=== PATIENT | female | born 1985 | race Caucasian/White ===

== ENCOUNTER 2020-08-06 15:55 | Outpatient (CLI) | payer OTHER, SELFPAY ==
--- NOTE | ~2020-08-06 | XR_ITS ---
EXAMINATION: XR shoulder RT min 2V DATE: 08/06/2020 16:15 INDICATION: Right shoulder pain. TECHNIQUE: 4 views of right shoulder were obtained. COMPARISON: None. FINDINGS: Bone alignment is normal. No fracture. Joint spaces are well maintained. IMPRESSION: 1. Normal right shoulder. Reviewed, dictated and finalized at location A. COLLECTOR TREATER IMPRESSION: 1. Normal right shoulder.
== END 2020-08-06 15:56 | disposition home or self-care (01) ==
LOC: CHSIMG 15:57
PROVIDERS: PCP Family Medicine; Visit Provider Family Medicine
DX: M25.511 Pain in right shoulder (principal)
CPT/HCPCS: 73030

== ENCOUNTER 2020-09-15 11:25 | Outpatient (CLI) | payer OTHER, SELFPAY ==
[2020-09-19 21:23] LABS: Vitamin D 25 Hydroxy 48 ng/mL (30-100)
== END 2020-09-15 11:26 | disposition home or self-care (01) ==
LOC: CHSLAB 11:27
PROVIDERS: PCP Family Medicine; Visit Provider Nurse Practitioner
DX: Z13.21 Encounter for screening for nutritional disorder (principal)
CPT/HCPCS: 36415; 82306

== ENCOUNTER 2021-09-15 13:27 | Outpatient (CLI) | payer OTHER, SELFPAY ==
--- NOTE | ~2021-09-15 | XR_ITS ---
EXAMINATION: XR lumbar spine 2-3V DATE: 09/15/2021 13:53 INDICATION: Low back pain. TECHNIQUE: 3 views of lumbar spine were obtained. COMPARISON: Lumbar spine radiographs 06/12/2017 FINDINGS: Bone alignment is normal. Vertebral body heights are normal. There are changes of anterior and posterior fusion procedures from L4 to S1 with interbody devices and pedicle screws. Intervertebr al disc heights are normal. There are endplate osteophytes at most levels. The facet joints are unrem arkable and upper lumbar spine.. IMPRESSION: 1. Anterior and posterior fusion procedures from L4 to S1. Reviewed, dictated and finalized at location B. EW APPRAISER
== END 2021-09-15 13:28 | disposition home or self-care (01) ==
LOC: CHSIMG 13:29
PROVIDERS: PCP Family Medicine; Visit Provider Physician Assistant
DX: M54.50 Low back pain, unspecified (principal)
CPT/HCPCS: 72100

== ENCOUNTER 2022-10-05 07:30 | Outpatient (CLI) | payer BC, SELFPAY ==
[2022-10-05 07:50] LABS: Basophils Absolute Auto 0.04 K/mm3 (0.00-0.10); Basophils Percent Auto 0.5 % (0.0-1.0); Eosinophils Percent Auto 1.2 % (1.0-6.0); Hematocrit 42.7 % (35.0-49.0); Hemoglobin 13.9 g/dL (12.0-15.0); Immature Granulocyte Absolute 0.02 K/mm3 (0.00-0.00); Immature Granulocyte Percent A 0.2 % (0.0-0.0); Lymphocytes Absolute Auto 1.48 K/mm3 (1.10-4.50); Mean Corpuscular HGB Conc 32.6 g/dL (32.0-36.0); Mean Corpuscular Hemoglobin 31.4 pg (27.0-31.0); Mean Corpuscular Volume 96.6 fL (78.0-102.0); Mean Platelet Volume 9.3 fl (9.2-11.8); Monocytes Absolute Auto 0.58 K/mm3 (0.10-0.90); Monocytes Percent Auto 7.1 % (2.0-11.0); Platelet Count Result 269 K/mm3 (150-420); Red Blood Count 4.42 M/mm3 (4.20-5.40); Red Cell Distribution Width 11.8 % (11.6-14.4); White Blood Count 8.2 K/mm3 (4.8-10.8)
[2022-10-05 07:58] LABS: Hemoglobin A1C 5.1 % (<5.7)
[2022-10-05 08:36] LABS: HIV 1 P24 AG Negative (Negative); HIV 1/2 AB Negative (Negative)
[2022-10-05 10:12] LABS: Alanine Aminotransferase 21 U/L (14-59); Albumin Level 3.8 g/dL (3.4-5.0); Alkaline Phosphatase 28 U/L (46-116); Anion Gap 8 mmol/L (8-16); Aspartate Amino Transferase < 10 U/L (15-37); Bilirubin,Total 0.3 mg/dL (0.00-1.00); Blood Urea Nitrogen 11 mg/dL (7-18); Carbon Dioxide 28 mmol/L (21-32); Chloride 104 mmol/L (98-108); Cholesterol 174 mg/dL (0-200); Estimated Glomerular Filt Rate > 60; Free T4 Free Thyroxine 0.89 ng/dL (0.76-1.46); Glucose 93 mg/dL (70-99); HDL Direct 52 mg/dL (40-60); LDL Cholesterol Calculated 99 mg/dL (<130); Osmolality Calculated 289 mOsm/kg (285-295); Potassium 4.6 mmol/L (3.5-5.1); Sodium 140 mmol/L (136-145); Total Protein 7.4 g/dL (6.4-8.2); Triglycerides 116 mg/dL (0-150)
[2022-10-05 10:58] LABS: Thyroid Stimulating Hormone 1.24 uIU/mL (0.36-3.74); Vitamin B12 276 pg/mL (193-986)
[2022-10-07 16:11] LABS: RPR Screen Non-Reactive (Non-Reactive)
[2022-10-09 19:33] LABS: Hepatitis A Antibody IgM Nonreactive; Hepatitis B Core Antibody Nonreactive (Nonreactive); Hepatitis B Surface Antigen Nonreactive (Nonreactive); Hepatitis C Signal to Cutoff 0.02 ratio (<1.00); Hepatitis C Virus Antibody Nonreactive (Nonreactive)
[2022-10-09 20:06] LABS: Vitamin D 25 Hydroxy 46 ng/mL (30-100)
== END 2022-10-05 07:31 | disposition home or self-care (01) ==
LOC: CHSLAB 07:35
PROVIDERS: PCP Family Medicine; Visit Provider Nurse Practitioner
DX: E55.9 Vitamin D deficiency, unspecified (principal); Z11.3 Encounter for screening for infections with a predominantly sexual mode of transmission
CPT/HCPCS: 36415; 80053; 80061; 80074; 82306; 82607; 83036; 84439; 84443; 85025; 86592; 86703

== ENCOUNTER 2023-07-19 11:08 | Outpatient (CLI) | payer BC, SELFPAY ==
[2023-07-19 11:19] LABS: Basophils Absolute Auto 0.04 K/mm3 (0.00-0.10); Basophils Percent Auto 0.6 % (0.0-1.0); Eosinophils Absolute Auto 0.09 K/mm3 (0.02-0.50); Eosinophils Percent Auto 1.4 % (1.0-6.0); Hematocrit 44.7 % (35.0-49.0); Hemoglobin 14.4 g/dL (12.0-15.0); Immature Granulocyte Absolute 0.01 K/mm3 (0.00-0.00); Immature Granulocyte Percent A 0.2 % (0.0-0.0); Lymphocytes Absolute Auto 1.86 K/mm3 (1.10-4.50); Lymphocytes Percent Auto 28.4 % (18.0-42.0); Mean Corpuscular HGB Conc 32.2 g/dL (32.0-36.0); Mean Corpuscular Hemoglobin 31.1 pg (27.0-31.0); Mean Corpuscular Volume 96.5 fL (78.0-102.0); Mean Platelet Volume 9.1 fl (9.2-11.8); Monocytes Absolute Auto 0.45 K/mm3 (0.10-0.90); Monocytes Percent Auto 6.9 % (2.0-11.0); Neutrophils Absolute Auto 4.1 K/mm3 (1.7-7.2); Neutrophils Percent Auto 62.5 % (50.0-70.0); Platelet Count Result 263 K/mm3 (150-420); Red Blood Count 4.63 M/mm3 (4.20-5.40); Red Cell Distribution Width 11.7 % (11.6-14.4); White Blood Count 6.5 K/mm3 (4.8-10.8)
== END 2023-07-19 11:09 | disposition home or self-care (01) ==
LOC: CHSLAB 11:11
PROVIDERS: PCP Family Medicine; Visit Provider Nurse Practitioner
DX: T14.8XXA Other injury of unspecified body region, initial encounter (principal)
CPT/HCPCS: 36415; 85025

== ENCOUNTER 2023-08-06 16:24 | Outpatient (CLI) | payer BC, OTHER, SELFPAY ==
--- NOTE | ~2023-08-06 | XR_ITS ---
EXAMINATION: XR facial bones min 3V DATE: 08/06/2023 16:50 INDICATION: Left jaw pain. Left forehead pain. TECHNIQUE: 4 views of the facial bones were obtained. COMPARISON: None. FINDINGS: Bone alignment is normal. No fracture. IMPRESSION: 1. No fracture. Reviewed, dictated and finalized at location E. ETING PROGRAMS MANAGER IMPRESSION: 1. No fracture.
== END 2023-08-06 16:25 | disposition home or self-care (01) ==
LOC: CHSIMG 16:25
PROVIDERS: PCP Family Medicine; Visit Provider Family Medicine
DX: R68.84 Jaw pain (principal)
CPT/HCPCS: 70150

== ENCOUNTER 2023-10-09 09:09 | Outpatient (CLI) | payer BC, SELFPAY ==
--- NOTE | ~2023-10-09 | XR_ITS ---
EXAMINATION: XR shoulder LT min 2V DATE: 10/09/2023 09:41 INDICATION: Left shoulder pain. TECHNIQUE: 4 views of left shoulder were obtained. COMPARISON: None. FINDINGS: Bone alignment is normal. No fracture. Glenohumeral joint is normal. There is moderate acro mioclavicular joint osteoarthritis. IMPRESSION: 1. Moderate left acromioclavicular joint osteoarthritis. Reviewed, dictated and finalized at location A. PPER PRELIMINARY
[2023-10-09 09:35] LABS: Basophils Absolute Auto 0.04 K/mm3 (0.00-0.10); Basophils Percent Auto 0.6 % (0.0-1.0); Eosinophils Absolute Auto 0.06 K/mm3 (0.02-0.50); Eosinophils Percent Auto 0.9 % (1.0-6.0); Hematocrit 42.8 % (35.0-49.0); Hemoglobin 13.8 g/dL (12.0-15.0); Immature Granulocyte Absolute 0.02 K/mm3 (0.00-0.00); Immature Granulocyte Percent A 0.3 % (0.0-0.0); Lymphocytes Absolute Auto 0.85 K/mm3 (1.10-4.50); Lymphocytes Percent Auto 12.1 % (18.0-42.0); Mean Corpuscular HGB Conc 32.2 g/dL (32.0-36.0); Mean Corpuscular Hemoglobin 30.8 pg (27.0-31.0); Mean Corpuscular Volume 95.5 fL (78.0-102.0); Monocytes Absolute Auto 0.49 K/mm3 (0.10-0.90); Neutrophils Absolute Auto 5.6 K/mm3 (1.7-7.2); Neutrophils Percent Auto 79.1 % (50.0-70.0); Platelet Count Result 306 K/mm3 (150-420); Red Blood Count 4.48 M/mm3 (4.20-5.40); Red Cell Distribution Width 11.9 % (11.6-14.4)
[2023-10-09 09:41] LABS: Hemoglobin A1C 4.7 % (<5.7)
[2023-10-09 10:18] LABS: HIV 1 P24 AG Negative (Negative); HIV 1/2 AB Negative (Negative)
[2023-10-09 10:49] LABS: Alanine Aminotransferase 21 U/L (14-59); Albumin Level 3.7 g/dL (3.4-5.0); Alkaline Phosphatase 24 U/L (46-116); Anion Gap 10 mmol/L (8-16); Aspartate Amino Transferase 11 U/L (15-37); Bilirubin,Total 0.4 mg/dL (0.00-1.00); Blood Urea Nitrogen 12 mg/dL (7-18); Calcium 8.9 mg/dL (8.5-10.1); Carbon Dioxide 28 mmol/L (21-32); Chloride 101 mmol/L (98-108); Cholesterol 187 mg/dL (0-200); Estimated Glomerular Filt Rate > 60; Free T4 Free Thyroxine 0.89 ng/dL (0.76-1.46); Glucose 97 mg/dL (70-99); HDL Direct 58 mg/dL (40-60); LDL Cholesterol Calculated 98 mg/dL (<130); Osmolality Calculated 287 mOsm/kg (285-295); Potassium 4.3 mmol/L (3.5-5.1); Sodium 139 mmol/L (136-145); Thyroid Stimulating Hormone 0.81 uIU/mL (0.36-3.74); Total Protein 7.3 g/dL (6.4-8.2); Triglycerides 157 mg/dL (0-150); Vitamin B12 287 pg/mL (193-986)
[2023-10-11 10:32] LABS: RPR Screen Non-Reactive (Non-Reactive)
[2023-10-12 12:22] LABS: Vitamin D 25 Hydroxy 33 ng/mL (30-100)
[2023-10-12 20:07] LABS: Hepatitis A Antibody IgM Nonreactive; Hepatitis B Core Antibody Nonreactive (Nonreactive); Hepatitis B Surface Antigen Nonreactive (Nonreactive); Hepatitis C Virus Antibody Nonreactive
== END 2023-10-09 09:10 | disposition home or self-care (01) ==
LOC: CHSLAB 09:13
PROVIDERS: PCP Family Medicine; Visit Provider Nurse Practitioner
DX: Z01.419 Encounter for gynecological examination (general) (routine) without abnormal findings (principal); Z11.3 Encounter for screening for infections with a predominantly sexual mode of transmission; M25.512 Pain in left shoulder; M19.012 Primary osteoarthritis, left shoulder
CPT/HCPCS: 36415; 73030; 80053; 80061; 80074; 82306; 82607; 83036; 84439; 84443; 85025; 86592; 87806

== ENCOUNTER 2023-11-16 13:25 | Outpatient (CLI) | payer BC, OTHER, SELFPAY ==
[2023-11-16 14:42] LABS: Vitamin B12 534 pg/mL (193-986)
== END 2023-11-16 13:26 | disposition home or self-care (01) ==
LOC: CHSLAB 13:28
PROVIDERS: PCP Family Medicine; Visit Provider Obstetrics & Gynecology Gynecology
DX: E53.8 Deficiency of other specified B group vitamins (principal)
CPT/HCPCS: 36415; 82607

== ENCOUNTER 2024-04-07 17:54 | Outpatient (CLI) | payer MEDICAID, SELFPAY ==
[2024-04-07 18:53] LABS: HIV 1 P24 AG Negative (Negative); HIV 1/2 AB Negative (Negative)
[2024-04-08 19:13] LABS: Vitamin B12 1673 pg/mL (193-986)
[2024-04-09 08:03] LABS: Vitamin D 25 Hydroxy 44 ng/mL (30-100)
[2024-04-09 11:54] LABS: RPR Screen NON-REACTIVE (NON-REACTIVE)
[2024-04-10 06:14] LABS: Hepatitis B Surface Antigen NON-REACTIVE (NON-REACTIVE); Hepatitis C Virus Antibody NON-REACTIVE (NON-REACTIVE)
[2024-04-10 07:25] LABS: Hepatitis A Antibody IgM NON-REACTIVE (NON-REACTIVE); Hepatitis B Core Antibody NON-REACTIVE (NON-REACTIVE)
== END 2024-04-07 17:55 | disposition home or self-care (01) ==
LOC: CHSLAB 17:56
PROVIDERS: PCP Family Medicine; Visit Provider Obstetrics & Gynecology Gynecology
DX: Z13.0 Encounter for screening for diseases of the blood and blood-forming organs and certain disorders involving the immune mechanism (principal); E55.9 Vitamin D deficiency, unspecified; Z11.3 Encounter for screening for infections with a predominantly sexual mode of transmission
CPT/HCPCS: 36415; 80074; 82306; 82607; 86592; 87806

== ENCOUNTER 2024-10-28 12:52 | Outpatient (CLI) | payer OTHER, SELFPAY ==
[2024-10-28 14:32] LABS: Hematocrit 42.3 % (37.0-47.0); Mean Corpuscular HGB Conc 33.1 g/dl (32-36); Mean Corpuscular Volume 93.6 fl (80-100); Mean Platelet Volume 9.5 fl (7.4-10.4); Platelet Count Result 305 k/mm3 (150-375); Red Blood Count 4.52 M/mm3 (4.2-5.4); Red Cell Distribution Width 11.9 % (11.5-14.5); White Blood Count 7.9 K/mm3 (4.5-10.0)
--- OUTSIDE RECORDS SUMMARY | 2024-10-28 14:35 | XMS_ITS | Patient Health Record ---
Author Organization [facility] Address [address] [place] [address] Care Team Providers Care Bulk Truck Driver Name Role Phone Hank Aguillon MD Unavailable Unavailable Reason For Referral No Information Plan Of Treatment No Information Insurance Providers Payer Name Payer Address Payer Phone Subscriber Number Group Number Insured Name Patient Relationship to Insured Coverage Start Date Coverage End Date [facility] [address] [place] [address] [id number] Maxine Zheng Self - patient is the insured
--- OUTSIDE RECORDS SUMMARY | 2024-10-28 14:35 | XMS_ITS | Clinical Summary ---
Author Organization [facility] Address [address] [place] [address] Care Team Providers Care Aoc Operations Intelligence Officer Name Role Phone Daryn Wood MD Primary Care Provider [phone]- [phone] Allergies Active Allergy Reactions Criticality Noted Date Comments Sulfa Antibiotics Unknown 09/02/2023 Medications No known medications Social History Tobacco Use Types Packs/Day Years Used Date Smoking Tobacco: Every Day Cigarettes Smokeless Tobacco: Never Tobacco Cessation:Ready to Q uit: Not Asked; Counseling Given: Not Answered Alcohol Use Standard Drinks/Week Comments Yes 0 (1 standard drink = 0.6 oz pur e alcohol) socially Comments No Sex and Gender Information Value Date Recorded Sex Assigned at Not on file Legal Sex Female 2:53 PM CDT Gender Identity Not on file Sexual Orientation Not on file Last Filed Vital Signs Vital Sign Reading Time Taken Comments Blood Pressure 133/90 09/02/2023 12:45 PM SWIM COACH Pulse 96 09/02/2023 12:15 PM SWIM COACH Temperature 36.5 C (97.7 F) 09/02/2023 12:15 PM SWIM COACH Respiratory Rate 18 09/02/2023 12:15 PM SWIM COACH Oxygen Saturation 100% 09/02/2023 12:50 PM SWIM COACH Inhaled Oxygen Concentration - - Weight 93 kg (205 lb) 09/02/2023 12:15 PM SWIM COACH Height 162.6 cm (5' 4 ) 09/02/2023 12:15 PM SWIM COACH Body Mass Index 35.19 09/02/2023 12:15 PM SWIM COACH Plan of Treatment Health Maintenance Due Date Last Done Comments Cervical Cancer Screening Pa p Smear (Age 30 to 64) Every 3 Years 1986 Annual Physical 1989 Pneumococcal Vaccine: Pediat rics (0 to 5 Years) and At-Risk Patients (6 to 64 Years) (1 of 2 - PCV) 1992 Hepatitis C 2004 DTaP, Tdap and Td Vaccines ( 1 - Tdap) 2005 Hepatitis B Vaccines (1 of 3 - 19+ 3-dose series) 2005 Cervical Cancer Screening Pa p with HPV Testing (Age 30 to 64) Every 5 Years 2016 Cervical Cancer Screening with HPV 2016 COVID-19 Vaccine (1 - 2023-2 5 season) 2024 Influenza Adult (#1) 2024 HPV Vaccines Aged Out No longer eligi ble based on patient's age to complete this topic Meningococcal B Vaccine Aged Out No l onger eligible based on patient's age to complete this topic Meningococcal Vaccine Aged Out No geoffrey yakov eligible based on patient's age to complete this topic RSV Immunizations Under 20 Months Aged Out No longer eligible based on patient's age to complete this topic Insurance [facility]IME [facility]IM[facility] [address], [place] [address] Care Teams Aoc Operations Intelligence Officer Relationship Specialty Start Date End Date Daryn Wood MD [address] [place] [address] PCP - General FAMILY PRACTICE 04/06/22
[2024-10-28 14:46] LABS: Alanine Aminotransferase 17 U/L (6-35); Albumin Level 4.5 g/dL (3.5-5.1); Alkaline Phosphatase 31 U/L (38-126); Anion Gap 8 mmol/L (4-12); Aspartate Amino Transferase 18 U/L (14-36); Bilirubin,Total 0.4 mg/dL (0.2-1.3); Blood Urea Nitrogen 10 mg/dL (7-17); Calcium 9.2 mg/dL (8.4-10.2); Carbon Dioxide 30 mmol/L (22-30); Chloride 101 mmol/L (98-107); Estimated Glomerular Filt Rate > 60; Glucose 94 mg/dL (65-110); Potassium 3.9 mmol/L (3.4-5.0); Sodium 139 mmol/L (137-145)
[2024-10-28 14:48] LABS: Hemoglobin A1C 4.9 % (<5.7)
[2024-10-28 15:21] LABS: Free T4 Free Thyroxine 0.95 ng/dL (0.78-2.19)
[2024-10-29 21:13] LABS: FSH 19.7 mIU/mL; LH 45.1 mIU/mL
== END 2024-10-28 12:53 | disposition home or self-care (01) ==
LOC: ANHLAB 12:54
PROVIDERS: PCP Family Medicine; Visit Provider Nurse Practitioner
DX: Z01.419 Encounter for gynecological examination (general) (routine) without abnormal findings (principal); N95.1 Menopausal and female climacteric states
CPT/HCPCS: 36415; 80053; 82607; 82670; 83001; 83002; 83036; 84439; 84443; 85027

== ENCOUNTER 2024-11-05 07:24 | Outpatient (CLI) | payer OTHER, SELFPAY ==
--- OUTSIDE RECORDS SUMMARY | 2024-11-05 07:30 | XMS_ITS | Patient Health Record ---
Author Organization [facility] Address [address] [place] [address] Care Team Providers Care Regulator Mechanic Name Role Phone Hank Aguillon MD Unavailable Unavailable Reason For Referral No Information Plan Of Treatment No Information Insurance Providers Payer Name Payer Address Payer Phone Subscriber Number Group Number Insured Name Patient Relationship to Insured Coverage Start Date Coverage End Date [facility] [address] [place] [address] [id number] Maxine Zheng Self - patient is the insured
--- OUTSIDE RECORDS SUMMARY | 2024-11-05 07:30 | XMS_ITS | Clinical Summary ---
Author Organization [facility] Address [address] [place] [address] Care Team Providers Care Shear Scrapman Name Role Phone Daryn Wood MD Primary Care Provider [phone]- [phone] Allergies Active Allergy Reactions Criticality Noted Date [...] Comments Blood Pressure 133/90 09/02/2023 12:45 PM CUTTER OPERATOR TILE Pulse 96 09/02/2023 12:15 PM CUTTER OPERATOR TILE Temperature 36.5 C (97.7 F) 09/02/2023 12:15 PM CUTTER OPERATOR TILE Respiratory Rate 18 09/02/2023 12:15 PM CUTTER OPERATOR TILE Oxygen Saturation 100% 09/02/2023 12:50 PM CUTTER OPERATOR TILE Inhaled Oxygen Concentration - - Weight 93 kg (205 lb) 09/02/2023 12:15 PM CUTTER OPERATOR TILE Height 162.6 cm (5' 4 ) 09/02/2023 12:15 PM CUTTER OPERATOR TILE Body Mass Index 35.19 09/02/2023 12:15 PM CUTTER OPERATOR TILE Plan of Treatment Health Maintenance Due Date [...] patient's age to complete this topic Insurance [facility] CRIME VICTIMS [address] [address] Care Teams Shear Scrapman Relationship Specialty Start Date End Date Daryn Wood MD [address] [place] [address] PCP - General FAMILY PRACTICE 04/06/22
[2024-11-07 14:04] LABS: Reference Lab Test Name Estradiol
[2024-11-07 14:06] LABS: Reference Lab Test Result 114
== END 2024-11-05 07:25 | disposition home or self-care (01) ==
PROVIDERS: PCP Family Medicine; Visit Provider Nurse Practitioner
DX: N95.1 Menopausal and female climacteric states (principal)
CPT/HCPCS: 36415; 82670

== ENCOUNTER 2024-12-17 00:06 | Day surgery (SDC) | payer OTHER, SELFPAY ==
[2024-12-08 14:52] VITALS: BMI 36.1
--- OUTSIDE RECORDS SUMMARY | 2024-12-17 00:09 | XMS_ITS | Clinical Summary ---
Author Organization [facility] Address [address] [place] [address] Care Team Providers Care Global Engineering Manager Name Role Phone Daryn Wood MD Primary Care Provider [phone]- [phone] Allergies Active Allergy Reactions Criticality Noted Date [...] Comments Blood Pressure 133/90 09/02/2023 12:45 PM TRIAL MGR Pulse 96 09/02/2023 12:15 PM TRIAL MGR Temperature 36.5 C (97.7 F) 09/02/2023 12:15 PM TRIAL MGR Respiratory Rate 18 09/02/2023 12:15 PM TRIAL MGR Oxygen Saturation 100% 09/02/2023 12:50 PM TRIAL MGR Inhaled Oxygen Concentration - - Weight 93 kg (205 lb) 09/02/2023 12:15 PM TRIAL MGR Height 162.6 cm (5' 4 ) 09/02/2023 12:15 PM TRIAL MGR Body Mass Index 35.19 09/02/2023 12:15 PM TRIAL MGR Plan of Treatment Health Maintenance Due Date Last Done Comments Cervical Cancer Screening Pa p Smear (Age 30 to 64) Every 3 Years 1986 Annual Physical 1989 Pneumococcal Vaccine: Pediat rics (0 to 5 Years) and At-Risk Patients (6 to 49 Years) (1 of 2 - PCV) 1992 Hepatitis C 2004 DTaP, Tdap and Td Vaccines ( 1 - Tdap) 2005 Hepatitis B Vaccines (1 of 3 - 19+ 3-dose series) 2005 Cervical Cancer Screening Pa p with HPV Testing (Age 30 to 64) Every 5 Years 2016 Cervical Cancer Screening with HPV 2016 COVID-19 Vaccine (1 - 2023-2 5 season) 2024 HPV Vaccines Aged Out No longer [...] patient's age to complete this topic Insurance [facility] CRIME VICTIMS [address]D [address] [address] Care Teams Global Engineering Manager Relationship Specialty Start Date End Date Daryn Wood MD [address] [place] [phone] PCP - General FAMILY PRACTICE 04/06/22
--- OUTSIDE RECORDS SUMMARY | 2024-12-17 00:09 | XMS_ITS | Patient Health Record ---
Author Organization [facility] Address [address] [place] [address] Care Team Providers Care Guest Services Manager Name Role Phone Hank Aguillon MD Unavailable Unavailable Reason For Referral No Information Plan Of Treatment No Information Insurance Providers Payer Name Payer Address Payer Phone Subscriber Number Group Number Insured Name Patient Relationship to Insured Coverage Start Date Coverage End Date [facility] [address] [place] [address] [id number] Maxine Zheng Self - patient is the insured
[2024-12-17 12:48] VITALS: BP 125/78; PULSE 86; RESP 18; TEMP 36.2; O2SAT 100; BMI 36.2
[2024-12-17] MEDS: LACTATED RINGERS 1,000 ML 150 ML IV CONT (12:51)
--- NOTE | 2024-12-17 12:59 | P.PNAN_ITS ---
Anes - Initial Pre Proc Eval Procedure: Operation Date: 12/17/24 13:30 Proposed Procedures p Colonoscopy - Home Ibarra MD Date/Time: 12/17/24 12:59 Surgeon: Home Ibarra MD Pre Op Diagnosis: Other hemorrhoids Patient Data Age: 39 Gender: F Height: 1.63 m Weight: 95.7 kg Last Vital Signs Temp 36.2 C L 12/17/24 12:48 Pulse 86 12/17/24 12:48 Resp 18 12/17/24 12:48 BP 125/78 12/17/24 12:48 Pulse Ox 100 12/17/24 12:48 O2 Del Method Room Air 12/17/24 12:48 Allergies Allergy/AdvReac Type Severity Reaction Status Date / Time Sulfa (Sulfonamide AdvReac Mild hives Verified 12/17/24 12:45 Antibiotics) Home Medications ?Medication ?Instructions ?Recorded ?Confirmed ?Type No Home Medications 08/20/23 12/08/24 History Patient hx anesthesia problems: none Family hx anesthesia problems: none Results Review: All pre-operative results and documents have been reviewed as part of the pre- operative evaluation. 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 Informed Consent: The patient's anesthetic plan and its attendant risks and benefits were discussed with the patient/family/POA. Questions were solicited and answers provided to the satisfaction of the patient/family/POA.
[2024-12-17 13:04] LABS: BEDSIDEPREGUCG Negative (Negative)
--- NOTE | 2024-12-17 13:41 | PM.HPGS ---
History of Present Illness History of Present Illness Consent: Risks, benefits, and alternatives have been discussed and questions answered. Patient agrees to proceed with procedure. Chief complaint: Other hemorrhoids Narrative: Maxine Zheng is a 39 year old female here for first colonoscopy, intermittent blood in stool Review of Systems Review of Systems: All systems reviewed & are unremarkable except as noted in HPI and below PMFSH Past Medical History Medical History (Updated 12/17/24 @ 13:44 by Home Ibarra MD) Blood in stool Surgical History Surgical History History of spinal fusion Family History Family History Father Hypertension Social History Social History Years smoked: 8 Smoking status: Current every day smoker Tobacco type: e-cigarettes/vaping Alcohol intake: current Drinks per week: 20 Alcohol use details: Social Substance use: never Substance use type: does not use Living arrangements: alone Occupation/Education: occupation Additional occupation/education comments: [employer] Gender identity (if verbalized by the patient): Female Spiritual care concerns: No Meds Home Medications and Allergies Home Medications ?Medication ?Instructions ?Recorded ?Confirmed ?Type No Home Medications 08/20/23 12/08/24 History Allergies Allergy/AdvReac Type Severity Reaction Status Date / Time Sulfa (Sulfonamide AdvReac Mild hives Verified 12/17/24 12:45 Antibiotics) Vital Signs Vital Signs - 24 hr 12/17/24 12:48 Temperature 97.1 F L Pulse Rate 86 Respiratory Rate 18 Blood Pressure 125/78 Pulse Oximetry 100 Oxygen Delivery Room Air Exam Const: General: comfortable and no acute distress HENMT: Face/Nose/Sinus: Normal nares present Eyes: General: appearance normal, both eyes and all related structures Neck: Neck: no JVD Resp: Auscultation: clear to auscultation bilaterally Cardio: Rate: regular rate Rhythm: regular rhythm GI: Inspection: non-distended GI Palp: Yes Soft to palpation Skin: General skin exam: normal color Neuro: General: gait normal Speech: normal speech Extrem: General: normal to inspection Psych: Mental Status: mental status grossly normal Assessment and Plan Assessment and plan (1) Bleeding internal hemorrhoids: Code(s): K64.8 - Other hemorrhoids Status: Acute (2) Blood in stool: Code(s): K92.1 - Melena Status: Acute Assessment and Plan: colonoscopy
[2024-12-17 14:03] VITALS: BP 90/46; PULSE 82; RESP 21; O2SAT 98
[2024-12-17 14:13] VITALS: BP 108/58; PULSE 81; RESP 22; O2SAT 100
[2024-12-17 14:23] VITALS: BP 145/78; PULSE 73; RESP 19; O2SAT 100
== END 2024-12-17 14:34 | disposition home or self-care (01) ==
PROVIDERS: Anesthesiology; PCP Family Medicine; Referring Provider Nurse Practitioner Family; Visit Provider Internal Medicine Gastroenterology
PROC: 0DJD8ZZ Inspection of Lower Intestinal Tract, Via Natural or Artificial Opening Endoscopic (ICD-10-PCS; CPT 45378; principal; 2024-12-17 13:30)
DX: K92.1 Melena (principal); K57.30 Diverticulosis of large intestine without perforation or abscess without bleeding; K64.8 Other hemorrhoids; K64.4 Residual hemorrhoidal skin tags; F17.290 Nicotine dependence, other tobacco product, uncomplicated; E66.9 Obesity, unspecified; Z68.36 Body mass index [BMI] 36.0-36.9, adult
CPT/HCPCS: 45378; J2003; J2704; J7120